=== PATIENT | male | born 1960 | race Caucasian/White ===

== ENCOUNTER 2018-07-13 09:17 | Outpatient (REF) | payer BC, SELFPAY ==
[2018-07-13 22:35] LABS: COMMENT (LAB VIEW ONLY) 144.96 mg/dL
[2018-07-13 22:38] LABS: ALT 34 U/L (12-78); AST 17 U/L (15-37); Albumin 3.7 g/dL (3.4-5.0); Alkaline Phosphatase 126 U/L (46-116); Anion Gap 8.9 mmol/L (3-11); BUN 20 mg/dL (7-18); Bilirubin, Total 0.4 mg/dL (0.2-1.0); CO2 29.1 mmol/L (21.0-32.0); CREATININE 1.04 mg/dL (0.70-1.30); Chloride 101 mmol/L (98-107); Cholesterol 267 mg/dL (50-200); Glucose 219 mg/dL (70-100); HDL Cholesterol 27 mg/dL (40-60); LDL CHOLESTEROL 184 mg/dL (<100); Potassium 4.6 mmol/L (3.5-5.1); Sodium 139 mmol/L (136-145); Total Protein 6.7 g/dL (6.4-8.2); Triglyceride 217 mg/dL (30-150)
== END 2018-07-13 09:37 ==
LOC: NCHCN 09:17
PROVIDERS: PCP Nurse Practitioner Family; Visit Provider Registered Nurse
DX: Z00.00 Encounter for general adult medical examination without abnormal findings
CPT/HCPCS: 80053; 80061; 83721; 82043; 82570

== ENCOUNTER 2018-08-09 11:59 | Outpatient (REF) | payer BC, SELFPAY ==
[2018-08-09 22:24] LABS: Anion Gap 11.1 mmol/L (3-11); BUN 20 mg/dL (7-18); CO2 25.9 mmol/L (21.0-32.0); CREATININE 1.06 mg/dL (0.70-1.30); Calcium 8.9 mg/dL (8.5-10.1); Chloride 100 mmol/L (98-107); Glucose 197 mg/dL (70-100); Magnesium 1.9 mg/dL (1.8-2.4); Potassium 4.4 mmol/L (3.5-5.1); Sodium 137 mmol/L (136-145)
== END 2018-08-09 12:19 ==
LOC: NCHCN 11:59
PROVIDERS: PCP Nurse Practitioner Family; Visit Provider Registered Nurse
DX: E11.9 Type 2 diabetes mellitus without complications (principal)
CPT/HCPCS: 80048; 83735

== ENCOUNTER 2019-01-10 09:01 | Outpatient (REF) | payer BC, SELFPAY ==
[2019-01-10 21:13] LABS: Calculated LDL 102 mg/dL; Cholesterol 160 mg/dL (50-200); HDL Cholesterol 29 mg/dL (40-60); Triglyceride 147 mg/dL (30-150)
== END 2019-01-10 09:21 ==
LOC: NCHCO 09:01
PROVIDERS: PCP Nurse Practitioner Family; Visit Provider Registered Nurse
DX: E78.5 Hyperlipidemia, unspecified (principal)
CPT/HCPCS: 80061

== ENCOUNTER 2019-08-04 09:32 | Outpatient (REF) | payer BC, SELFPAY ==
[2019-08-04 21:06] LABS: ALT 29 U/L (16-63); AST 11 U/L (15-37); Albumin 3.6 g/dL (3.4-5.0); Alkaline Phosphatase 130 U/L (46-116); BUN 26 mg/dL (7-18); Bilirubin, Total 0.8 mg/dL (0.2-1.0); CREATININE 1.14 mg/dL (0.70-1.30); Calcium 8.8 mg/dL (8.5-10.1); Chloride 101 mmol/L (98-107); Glucose 222 mg/dL (74-106); Potassium 4.4 mmol/L (3.5-5.1); Sodium 138 mmol/L (136-145); Total Protein 6.5 g/dL (6.4-8.2)
[2019-08-04 21:31] LABS: Hemoglobin A1C 8.7 % (3.8-5.6)
== END 2019-08-04 09:52 ==
LOC: NCHCN 09:32
PROVIDERS: PCP Nurse Practitioner Family; Visit Provider Registered Nurse
DX: E11.9 Type 2 diabetes mellitus without complications (principal); G47.00 Insomnia, unspecified
CPT/HCPCS: 80053; 83036

== ENCOUNTER 2019-11-01 21:14 | Outpatient (REF) | payer BC, SELFPAY ==
[2019-11-01 20:50] LABS: HCT 49.3 % (40.0-50.0); HGB 15.7 g/dL (13.5-17.5); MCH 26.5 pg (27.0-33.0); MCHC 31.8 % (32.0-36.0); MCV 83.1 fL (80-95); MPV 10.2 fL (8.0-11.0); Platelet Count 275 10^3/uL (130-400); RBC 5.93 10^6/uL (4.36-5.78); RDW 13.9 % (11.8-14.1); RDW-SD 41.7 fL; WBC 10.21 10^3/uL (4.4-10.8)
[2019-11-01 21:15] LABS: ALT 24 U/L (16-63); AST 14 U/L (15-37); Albumin 3.9 g/dL (3.4-5.0); Alkaline Phosphatase 131 U/L (46-116); Anion Gap 9.3 mmol/L (3-11); BUN 22 mg/dL (7-18); Bilirubin, Total 0.7 mg/dL (0.2-1.0); CO2 27.7 mmol/L (21.0-32.0); CREATININE 1.03 mg/dL (0.70-1.30); Calcium 9.1 mg/dL (8.5-10.1); Chloride 102 mmol/L (98-107); Glucose 161 mg/dL (74-106); Potassium 4.2 mmol/L (3.5-5.1); Sodium 139 mmol/L (136-145); TSH 2.76 uIU/mL (0.36-3.74); Total Protein 6.8 g/dL (6.4-8.2)
[2019-11-01 21:37] LABS: COMMENT (LAB VIEW ONLY) 55.61 mg/dL; Microalb ug/mg Crea 5.2 ug/mg Cr
[2019-11-02 08:08] LABS: NT-proBNP 31 pg/mL (<300)
== END 2019-11-01 21:34 ==
LOC: NCHCN 21:14
PROVIDERS: PCP Nurse Practitioner Family; Visit Provider Registered Nurse
DX: E11.9 Type 2 diabetes mellitus without complications (principal); R60.0 Localized edema; E78.5 Hyperlipidemia, unspecified
CPT/HCPCS: 80053; 85027; 82043; 82570; 83880; 84443

== ENCOUNTER 2019-11-15 21:05 | Outpatient (REF) | payer BC, SELFPAY ==
[2019-11-15 19:53] LABS: Anion Gap 10.1 mmol/L (3-11); BUN 20 mg/dL (7-18); CO2 25.9 mmol/L (21.0-32.0); Chloride 104 mmol/L (98-107); Glucose 95 mg/dL (74-106); Potassium 4.1 mmol/L (3.5-5.1); Sodium 140 mmol/L (136-145)
== END 2019-11-15 21:25 ==
LOC: NCHCN 21:05
PROVIDERS: PCP Nurse Practitioner Family; Visit Provider Registered Nurse
DX: R60.0 Localized edema (principal)
CPT/HCPCS: 80048

== ENCOUNTER 2020-10-23 12:15 | Outpatient (REF) | payer BC, SELFPAY ==
[2020-10-23 16:28] LABS: Abs Immature Grans 0.04 10^3/uL (0.0-0.06); Absolute Basophil Count 0.06 10^3/uL (0.0-0.2); Absolute Eosinophil Count 0.18 10^3/uL (0.0-0.7); Absolute Lymphocyte Count 2.39 10^3/uL (1.2-3.4); Absolute Monocyte Count 0.61 10^3/uL (0.1-0.8); Absolute Neutrophil Count 5.02 10^3/uL (1.2-6.7); Basophils % 0.7; Eosinophils % 2.2; HCT 47.6 % (40.0-50.0); HGB 15.5 g/dL (13.5-17.5); Immature Grans % 0.5; Lymphocytes % 28.8; MCH 27.4 pg (27.0-33.0); MCHC 32.6 % (32.0-36.0); MCV 84.1 fL (80-95); MPV 10.7 fL (8.0-11.0); Monocytes % 7.3; Neutrophils % 60.5; Nucleated RBC 0 %; Platelet Count 260 10^3/uL (130-400); RBC 5.66 10^6/uL (4.36-5.78); RDW 13.3 % (11.8-14.1); RDW-SD 41.1 fL
[2020-10-23 16:48] LABS: ALT 29 U/L (16-63); AST 17 U/L (15-37); Albumin 3.8 g/dL (3.4-5.0); Alkaline Phosphatase 93 U/L (46-116); Anion Gap 8.3 mmol/L (3-11); BUN 19 mg/dL (7-18); Bilirubin, Total 1.1 mg/dL (0.2-1.0); CO2 26.7 mmol/L (21.0-32.0); Calcium 8.7 mg/dL (8.5-10.1); Chloride 106 mmol/L (98-107); Glucose 97 mg/dL (74-106); Magnesium 1.9 mg/dL (1.8-2.4); Potassium 4.4 mmol/L (3.5-5.1); Sodium 141 mmol/L (136-145); TSH 2.71 uIU/mL (0.36-3.74); Total Protein 6.5 g/dL (6.4-8.2)
== END 2020-10-23 12:16 | disposition home or self-care (01) ==
LOC: NCHCN 12:15
PROVIDERS: PCP Nurse Practitioner Family; Visit Provider Registered Nurse
DX: R55 Syncope and collapse (principal)
CPT/HCPCS: 80053; 83735; 84443; 85025

== ENCOUNTER 2021-10-22 17:54 | Outpatient (REF) | payer BC, SELFPAY ==
[2021-10-22 16:19] LABS: Anion Gap 8.9 mmol/L (3-11); BUN 21 mg/dL (7-18); CO2 25.1 mmol/L (21.0-32.0); CREATININE 1.1 mg/dL (0.70-1.30); Calcium 8.9 mg/dL (8.5-10.1); Chloride 105 mmol/L (98-107); Glucose 120 mg/dL (74-106); Potassium 4.2 mmol/L (3.5-5.1); Sodium 139 mmol/L (136-145)
== END 2021-10-22 17:55 | disposition home or self-care (01) ==
LOC: NCHCN 17:54
PROVIDERS: PCP Nurse Practitioner Family; Visit Provider Registered Nurse
DX: E11.9 Type 2 diabetes mellitus without complications (principal)
CPT/HCPCS: 80048

== ENCOUNTER 2022-01-21 08:55 | Outpatient (REF) | payer BC, SELFPAY ==
[2022-01-21 16:01] LABS: COMMENT (LAB VIEW ONLY) 89.95 mg/dL; Microalb ug/mg Crea 7.9 ug/mg Cr
== END 2022-01-21 08:56 | disposition home or self-care (01) ==
LOC: NCHCN 08:55
PROVIDERS: PCP Nurse Practitioner Family; Visit Provider Registered Nurse
DX: E11.9 Type 2 diabetes mellitus without complications (principal)
CPT/HCPCS: 82043; 82570

== ENCOUNTER 2022-04-23 09:32 | Outpatient (REF) | payer BC, SELFPAY ==
--- NOTE | 2022-04-23 08:15 | SKI_PTH ---
PATIENT: Jose Beyer LOC: [facility] U#:[id number] AGE/SX: 61/M ROOM: RE04/23/[address]: Janet Cantor : 1960 BED: DIS: 04/23/2022 SPEC #: [id number] RECD: 04/23/22 17:27 STATUS: EDGAR REDomenic #: [id number] SAJI: 04/23/22 08:[address]: Janet Cantor DEPT: Surgical Specimen RECD BY: Paige Juárez ENTERED: 04/23/22 17:27 SP TYPE: DENTON GARZA DR: Ondina Guadalupe Tissues: 1 - SKIN CYST/TAG/DEBRIDEMENT Procedures: GROSS AND MICRO LEVEL 3 Comments: [id number]
--- OUTSIDE RECORDS SUMMARY | 2022-04-23 09:33 | XMS_ITS | CCD ---
:1960 Author Care Team Providers Name Role Phone NASIR BURDEN Attending Physician Unavailable NASIR BURDEN (Secondary) Physician Unavailab elsa Vital Signs Unknown or Not Available. Allergies Allergy Code Allergy Type Reaction Status LISINOPRIL 63512 Drug allergy COUGH Active Procedures Unknown or Not Available. History of Immunizations Unknown or Not Available. Problems Problem Code Start Date Resolved Date Status Diabetes 03383539 Active HTN 41909000 Active High cholesterol 17829761 Active Diabetes 22117421 06/05/2021 Resolved HTN 57945582 06/05/2021 Resolved Hyperlipidemia 64298012 06/05/2021 Resolved Results Unknown or Not Available. Active Medications Medication Code Dose Units Frequency Route Modification Start Date/Time Meclizine HCl 960110 1 TABLET FOUR TIMES A ORAL 06/05 25MG Oral DAY 12:31 Tablet Prescription Detail TAKE 1 TABLET ORAL FOUR TIME S A DAY Medications Administered During Visit Unknown or Not Available. Encounters Encounter Diagnosis Diagnosis Code Start Date Idiopathic osteoarthritis 925334910 02/07/2021 Social History Smoking Status Code Start Date End Date Never smoker [id number] Patient Decision Aids Unknown or Not Available. Discharge Instructions You were admitted to [facility] on 02/07/2021 13:41 with a principal diagnosis of Bilateral primary osteoarthritis of k nee You were discharged from [facility] on 02/07/2021 00:00 Should you have any questions prior to d ischarge, please contact a member of your healthcare team. If you have left the spital and have any questions, please contact your primary care physician. Chief Complaint and Reason For Visit Unknown or Not Available. Function Status Unknown or Not Available. Plan of Care Unknown or Not Available. Referral/Transition of Care Unknown or Not Available.
--- OUTSIDE RECORDS SUMMARY | 2022-04-23 09:33 | XMS_ITS | CCD ---
:1960 Author Care Team Providers Name Role Phone NASIR BURDEN Attending Physician Unavailable NASIR BURDEN (Secondary) Physician Unavailab elsa Vital Signs Unknown or Not Available. Allergies Allergy Code Allergy Type Reaction Status LISINOPRIL 80557 Drug allergy COUGH Active Procedures Unknown or Not Available. History of Immunizations Unknown or Not Available. Problems Problem Code Start Date Resolved Date Status Diabetes 94047229 Active HTN 97042785 Active High cholesterol 54383511 Active Diabetes 72243974 06/05/2021 Resolved HTN 26597122 06/05/2021 Resolved Hyperlipidemia 60747160 06/05/2021 Resolved Results Unknown or Not Available. Active Medications Medication Code Dose Units Frequency Route Modification Start Date/Time Meclizine HCl 191677 1 TABLET FOUR TIMES A ORAL 06/05 25MG Oral DAY 12:31 Tablet Prescription Detail TAKE 1 TABLET ORAL FOUR TIME S A DAY Medications Administered During Visit Unknown or Not Available. Encounters Encounter Diagnosis Diagnosis Code Start Date Idiopathic osteoarthritis 986806063 03/06/2021 Social History Smoking Status Code Start Date End Date Never smoker 054477119 Patient Decision Aids Unknown or Not Available. Discharge Instructions You were admitted to [facility] on 03/06/2021 14:22 with a principal diagnosis of Bilateral primary osteoarthritis of k nee You were discharged from [facility] on 03/06/2021 00:00 Should you have any questions prior [...]
--- OUTSIDE RECORDS SUMMARY | 2022-04-23 09:33 | XMS_ITS | CCD ---
:1960 Author Care Team Providers Name Role Phone NASIR BURDEN Attending Physician Unavailable NASIR BURDEN (Secondary) Physician Unavailab le Vital Signs Unknown or Not Available. Allergies Allergy Code Allergy Type Reaction Status LISINOPRIL 15157 Drug allergy COUGH Active Procedures Unknown or Not Available. History of Immunizations Unknown or Not Available. Problems Problem Code Start Date Resolved Date Status Diabetes 80975691 Active HTN 38459489 Active High cholesterol 90503644 Active Diabetes 61424736 06/05/2021 Resolved HTN 90648128 06/05/2021 Resolved Hyperlipidemia 65240609 06/05/2021 Resolved Results Unknown or Not Available. Active Medications Medication Code Dose Units Frequency Route Modification Start Date/Time Meclizine HCl 967809 1 TABLET FOUR TIMES A ORAL 06/05 25MG Oral DAY 12:31 Tablet Prescription Detail TAKE 1 TABLET ORAL FOUR TIME S A DAY Medications Administered During Visit Unknown or Not Available. Encounters Encounter Diagnosis Diagnosis Code Start Date Idiopathic osteoarthritis 356176865 03/27/2021 Social History Smoking Status Code Start Date End Date Never smoker 445003352 Patient Decision Aids Unknown or Not Available. Discharge Instructions You were admitted to [facility] on 03/27/2021 15:06 with a principal diagnosis of Unilateral primary osteoarthritis, le ft knee You were discharged from [facility] on 03/27/2021 00:00 Should you have any questions prior to d ischarge, please contact a member of your healthcare team. If you have left the ho spital and have any questions, please contact your primary care physician. Chief Complaint and Reason For Visit Unknown or Not Available. Function Status Unknown or Not Available. Plan of Care Unknown or Not Available. Referral/Transition of Care Unknown or Not Available.
--- OUTSIDE RECORDS SUMMARY | 2022-04-23 09:34 | XMS_ITS | CCD ---
:1960 Author Care Team Providers Name Role Phone LIDIA CHEUNG Attending Physician Unavailable LIDIA CHEUNG Er Physician 1 FERMIN Cordero Registered Nurse Unavailable UNIQUE Badillo Registered Nurse Unavailable Vital Signs Vital Sign Value Unit Date/Time Recent/Initial? BMI (Body Mass Index) 27.26 kg/m^2 06/05/2021 09:35 In itial VS Weight Measured 190 lbs 06/05/2021 09:35 Initial VS Height 70 in 06/05/2021 09:35 Initial VS BSA (Body Surface Area) 2.06 m^2 06/05/2021 09:35 Initial VS BP Systolic 147 mmHg 06/05/2021 09:35 Initial VS BP Diastolic 90 mmHg 06/05/2021 09:35 Initial VS Respiratory Rate 14 bpm 06/05/2021 09:35 Initial VS Heart Rate 95 bpm 06/05/2021 09:35 Initial VS O2 % BldC Oximetry 95 % 06/05/2021 09:35 Initi al VS Body Temperature 36.7 degrees 06/05/2021 09:35 Initial VS BP Systolic 123 mmHg 06/05/2021 12:40 Most Recent VS BP Diastolic 82 mmHg 06/05/2021 12:40 Most Recent VS Respiratory Rate 16 bpm 06/05/2021 12:40 Most Re cent VS Heart Rate 77 bpm 06/05/2021 12:40 Most Recent VS O2 % BldC Oximetry 98 % 06/05/2021 12:40 Most Recent VS Allergies Allergy Code Allergy Type Reaction Status LISINOPRIL 90571 Drug allergy COUGH Active METFORMIN 6809 Drug allergy Active Procedures Unknown or Not Available. History of Immunizations Unknown or Not Available. Problems Problem Code Start Date Resolved Date Status Diabetes 61529125 Active HTN 33768803 Active High cholesterol 63631962 Active Diabetes 21692206 06/05/2021 Resolved HTN 02352407 06/05/2021 Resolved Hyperlipidemia 76103457 06/05/2021 Resolved Results BASIC METABOLIC PANEL (BMP) - Collect Da te/Time: 06/05/2021 10:30 Test Name Code Test Result Test Units Test Ref Range GLUCOSE 2345-7 134 mg/dL L=70 H=116 BUN 3094-0 19 mg/dL L=6 H=25 CREATININE 2160-0 1.03 mg/dL L=0.67 H=1.17 SODIUM SERUM 2951-2 142 mmol/L L=136 H=145 POTASSIUM SERUM 2823-3 4.5 mmol/L L=3.4 H=5.2 CHLORIDE SERUM 2075-0 106 mmol/L L=96 H=110 CARBON DIOXIDE (CO2) 2028-9 28 mmol/L L=22 H= 34 ANION GAP 25713-8 8.1 mmol/L CALCIUM SERUM 79836-6 9.0 mg/dL L=8.2 H=10.2 AGE 60 years eGFR (non-Afr.Amer.) 93983-2 74 mL/min eGFR (Afr-Bahraini) 67042-7 89 mL/min TROPONIN HIGH SENSITIVITY* - Collect Rosalio e/Time: 06/05/2021 10:30 Test Name Code Test Result Test Units Test Ref Range TROPONIN HS 8.4 pg/mL L=0.0 H=60.4 Specimen seq. Random N/A CBC W/ DIFFERENTIAL* - Collect Date/Time : 06/05/2021 10:30 Test Name Code Test Result Test Units Test Ref Range WBC 6690-2 11.88 th/cmm L=5.00 H=10.00 NEUT % 80.6 % L=40.0 H=80.0 LYMPH % 13.6 % L=10.0 H=50.0 MONO % 31006-0 4.4 % L=2.0 H=12.0 EOS % 0.3 % L=0.0 H=8.0 BASO % 0.7 % L=0.0 H=3.0 IG % 2514-8 0.4 % L=0.0 H=1.1 NRBC % 53304-4 0.0 % L=0.0 H=0.0 NEUT abs count 751-8 9.6 th/cmm L=1.6 H=8.4 LYMPH abs count 731-0 1.6 th/cmm L=1.5 H=4.0 MONO abs count 742-7 0.5 th/cmm L=0.2 H=1.0 EOS abs count 711-2 0.0 th/cmm L=0.0 H=0.5 BASO abs count 704-7 0.1 th/cmm L=0.0 H=0.2 IG abs count 11646-7 0.1 th/cmm L=0.0 H=0.1 NRBC abs count 51780-7 0.0 mil/cmm L=0.0 H=0.0 RBC 789-8 5.65 mil/cmm L=4.30 H=6.20 HEMOGLOBIN 718-7 15.8 gm/dL L=13.0 H=17.0 HEMATOCRIT 4544-3 48 % L=45 H=52 MCV 787-2 84 fL L=82 H=92 MCH 785-6 28.0 pg L=27.0 H=31.0 MCHC 786-4 33.1 % L=32.0 H=36.0 RDW-SD 788-0 41.7 fL L=39.0 H=49.0 PLATELET COUNT 777-3 268 th/cmm L=150 H=450 Active Medications Medications Administered During Visit Medication Dose Units Frequency Route Date/Time of L ast Dose SODIUM CHLORIDE 0.9% 1000ML 1000 ML X1 06/05/2021 10:48 MECLIZINE TABLET: 25MG 25 MG X1 PO 10:57 Encounters Encounter Diagnosis Diagnosis Code Start Date Dizziness and giddiness R42 06/05/2021 Social History Smoking Status Code Start Date End Date Never smoker 746326267 Patient Decision Aids Unknown or Not Available. Discharge Instructions You were admitted to [facility] on 06/05/2021 09:03 with a principal diagnosis of Dizziness and giddiness You had the following tests done: BASIC METABOLIC PANEL (BMP) CBC W/ DIFFERENTIAL* TROPONIN HIGH SENSITIVITY* You were discharged from [facility] on 06/05/2021 12:43 Should you have any questions prior to d ischarge, please contact a member of your healthcare team. If you have left the ho spital and have any questions, please contact your primary care physician. Chief Complaint and Reason For Visit Chief Complaint Date of Onset dizziness and vomitting 06/05/2021 Function Status Unknown or Not Available. Plan of Care Unknown or Not Available. Referral/Transition of Care Unknown or Not Available.
--- OUTSIDE RECORDS SUMMARY | 2022-04-23 09:34 | XMS_ITS | CCD ---
:1960 Author Care Team Providers Name Role Phone COOKIE LINCOLN Attending Physician Unavailable COOKIE LINCOLN Rounding (Secondary) Physician Unavailab le Vital Signs Unknown or Not Available. Allergies Allergy Code Allergy Type Reaction Status LISINOPRIL 03299 Drug allergy COUGH Active Procedures Unknown or Not Available. History of Immunizations Unknown or Not Available. Problems Problem Code Start Date Resolved Date Status Diabetes 14452161 Active HTN 06532427 Active High cholesterol 80144429 Active Diabetes 37850127 06/05/2021 Resolved HTN 53016386 06/05/2021 Resolved Hyperlipidemia 71284018 06/05/2021 Resolved Results Unknown or Not Available. Active Medications Medication Code Dose Units Frequency Route Modification Start Date/Time Meclizine HCl 692915 1 TABLET FOUR TIMES A ORAL 06/05 25MG Oral DAY 12:31 Tablet Prescription Detail TAKE 1 TABLET ORAL FOUR TIME S A DAY Medications Administered During Visit Unknown or Not Available. Encounters Encounter Diagnosis Diagnosis Code Start Date Idiopathic osteoarthritis 795465933 05/13/2021 Social History Smoking Status Code Start Date End Date Never smoker 265649758 Patient Decision Aids Unknown or Not Available. Discharge Instructions You were admitted to [facility] on 05/13/2021 10:33 with a principal diagnosis of Bilateral primary osteoarthritis of k nee You were discharged from [facility] on 05/13/2021 00:00 Should you have any questions prior [...]
--- OUTSIDE RECORDS SUMMARY | 2022-04-23 09:34 | XMS_ITS | CCD ---
:1960 Author Care Team Providers Name Role Phone HARRISON BOB, RODERICK Frias Attending Physician Unavailable Vital Signs Unknown or Not Available. Allergies Allergy Code Allergy Type Reaction Status LISINOPRIL 83339 Drug allergy COUGH Active Procedures Unknown or Not Available. History of Immunizations Unknown or Not Available. Problems Problem Code Start Date Resolved Date Status Diabetes 51608781 Active HTN 19036395 Active High cholesterol 86868270 Active Diabetes 22386651 06/05/2021 Resolved HTN 81238822 06/05/2021 Resolved Hyperlipidemia 50677011 06/05/2021 Resolved Results Unknown or Not Available. Active Medications Medication Code Dose Units Frequency Route Modification Start Date/Time Meclizine HCl 161325 1 TABLET FOUR TIMES A ORAL 06/05 25MG Oral DAY 12:31 Tablet Prescription Detail TAKE 1 TABLET ORAL FOUR TIME S A DAY Medications Administered During Visit Unknown or Not Available. Encounters Encounter Diagnosis Diagnosis Code Start Date Syncope and collapse R55 12/13/2020 Social History Smoking Status Code Start Date End Date Never smoker 988304955 Patient Decision Aids Unknown or Not Available. Discharge Instructions You were admitted to [facility] on 12/13/2020 16:36 with a principal diagnosis of Syncope and collapse You were discharged from [facility] on 12/13/2020 16:36 Should you have any questions prior to [...]
--- OUTSIDE RECORDS SUMMARY | 2022-04-23 09:34 | XMS_ITS | CCD ---
:1960 Author Care Team Providers Name Role Phone NASIR BURDEN Attending Physician Unavailable NASIR BURDEN (Secondary) Physician Unavailab elsa Vital Signs Unknown or Not Available. Allergies Allergy Code Allergy Type Reaction Status LISINOPRIL 47549 Drug allergy COUGH Active Procedures Unknown or Not Available. History of Immunizations Unknown or Not Available. Problems Problem Code Start Date Resolved Date Status Diabetes 50437539 Active HTN 45649251 Active High cholesterol 96683315 Active Diabetes 51747831 06/05/2021 Resolved HTN 27451771 06/05/2021 Resolved Hyperlipidemia 56757447 06/05/2021 Resolved Results Unknown or Not Available. Active Medications Medication Code Dose Units Frequency Route Modification Start Date/Time Meclizine HCl 228838 1 TABLET FOUR TIMES A ORAL 06/05 25MG Oral DAY 12:31 Tablet Prescription Detail TAKE 1 TABLET ORAL FOUR TIME S A DAY Medications Administered During Visit Unknown or Not Available. Encounters Encounter Diagnosis Diagnosis Code Start Date Idiopathic osteoarthritis 966004669 05/29/2021 Social History Smoking Status Code Start Date End Date Never smoker 650676649 Patient Decision Aids Unknown or Not Available. Discharge Instructions You were admitted to [facility] on 05/29/2021 14:33 with a principal diagnosis of Bilateral primary osteoarthritis of k nee You were discharged from [facility] on 05/29/2021 00:00 Should you have any questions prior [...]
== END 2022-04-23 09:33 | disposition home or self-care (01) ==
LOC: NCHCN 09:32
PROVIDERS: PCP Nurse Practitioner Family; Visit Provider Registered Nurse
DX: L98.8 Other specified disorders of the skin and subcutaneous tissue (principal); L08.89 Other specified local infections of the skin and subcutaneous tissue; L91.8 Other hypertrophic disorders of the skin
CPT/HCPCS: 88304

== ENCOUNTER 2022-12-08 13:03 | Outpatient (REF) | payer OTHER, SELFPAY ==
[2022-12-08 16:12] LABS: Anion Gap 5.6 mmol/L (3-11); BUN 22 mg/dL (7-18); CO2 28.4 mmol/L (21.0-32.0); Calcium 8.8 mg/dL (8.5-10.1); Calculated LDL 75 mg/dL (<100); Chloride 102 mmol/L (98-107); Cholesterol 131 mg/dL (<200); Estimated GFR 86.16 (mL/min/1.73m2); Glucose 104 mg/dL (74-106); HDL Cholesterol 37 mg/dL (40-60); Potassium 4.1 mmol/L (3.5-5.1); Sodium 136 mmol/L (136-145); Triglyceride 96 mg/dL (<150)
== END 2022-12-08 13:04 | disposition home or self-care (01) ==
LOC: NCHCN 13:03
PROVIDERS: PCP Nurse Practitioner Family; Visit Provider Family Medicine
DX: I10 Essential (primary) hypertension (principal); E78.5 Hyperlipidemia, unspecified
CPT/HCPCS: 80048; 80061

== ENCOUNTER 2023-06-09 11:51 | Outpatient (REF) | payer OTHER, SELFPAY ==
[2023-06-09 15:33] LABS: Hemoglobin A1C 5.7 % (<5.7)
== END 2023-06-09 11:52 | disposition home or self-care (01) ==
LOC: NCHCN 11:51
PROVIDERS: PCP Nurse Practitioner Family; Referring Provider Family Medicine; Visit Provider Family Medicine
DX: E11.9 Type 2 diabetes mellitus without complications (principal)
CPT/HCPCS: 83036

== ENCOUNTER 2023-12-14 08:24 | Outpatient (REF) | payer OTHER, SELFPAY ==
[2023-12-14 17:37] LABS: ALT 26 U/L (16-63); AST 25 U/L (15-37); Albumin 4.1 g/dL (3.4-5.0); Alkaline Phosphatase 91 U/L (46-116); Anion Gap 6.2 mmol/L (3-11); BUN 18 mg/dL (7-18); Bilirubin, Total 1.15 mg/dL (0.2-1.0); CO2 29.8 mmol/L (21.0-32.0); CREATININE 1.1 mg/dL (0.70-1.30); Calcium 9.1 mg/dL (8.5-10.1); Chloride 105 mmol/L (98-107); Estimated GFR 76.37 (mL/min/1.73m2); Glucose 101 mg/dL (74-106); Potassium 4.6 mmol/L (3.5-5.1); Sodium 141 mmol/L (136-145); Total Protein 6.6 g/dL (6.4-8.2)
[2023-12-14 18:37] LABS: COMMENT (LAB VIEW ONLY) 132.71 mg/dL; Microalb ug/mg Crea 7.2 ug/mg Cr
== END 2023-12-14 08:25 | disposition home or self-care (01) ==
LOC: NCHCN 08:24
PROVIDERS: PCP Nurse Practitioner Family; Visit Provider Family Medicine
DX: E11.9 Type 2 diabetes mellitus without complications (principal); I10 Essential (primary) hypertension
CPT/HCPCS: 80053; 82043; 82570